=== PATIENT | female | born 1960 | race Caucasian/White ===

== ENCOUNTER 2019-05-29 18:19 | Emergency (ER) | payer BC ==
[2019-05-29 19:27] LABS: Urine Blood NEGATIVE (NEG); Urine Glucose NEGATIVE (NEG); Urine Protein NEGATIVE (NEG); Urine Specific Gravity 1.015 (1.005-1.030); Urine pH 5.5 (5.0-7.0)
[2019-05-29 19:33] LABS: Absolute Lymphocytes (CBC) 2.4 K/uL (0.7-4.9); Basophils % 0.6 % (0-1.3); Hematocrit 41.3 % (36.0-45.0); Lymphocytes % 26.5 % (15.3-44.8); MPV 10.3 fL (7.6-11.3); RBC Red Blood Cell Count 4.51 M/uL (3.86-4.86)
[2019-05-29] MEDS ORDERED: IBUPROFEN 200 MG TAB PO ONE (19:33)
[2019-05-29] MEDS ORDERED: IBUPROFEN 400 MG TAB ONE (19:33)
--- NOTE | 2019-05-29 20:06 | RAD REPORT ---
EXAM DESCRIPTION: Franki Single View05/29/2019 7:32 pm CLINICAL HISTORY: Chest pain COMPARISON: 2016 FINDINGS: The lungs appear clear of acute infiltrate. The heart is borderline enlarged IMPRESSION: No acute abnormalities displayed
[2019-05-29 20:15] LABS: ALT/SGPT 19 U/L (12-78); AST/SGOT 13 U/L (15-37); Albumin 3.6 g/dL (3.4-5.0); Alkaline Phosphatase 62 U/L (45-117); BUN Blood Urea Nitrogen 16 mg/dL (7-18); Bicarbonate 28 mmol/L (21-32); Bilirubin Direct 0.1 mg/dL (0-0.2); Bilirubin Total 0.3 mg/dL (0.2-1.0); Glucose Level 74 mg/dL (74-106); Lipase 83 U/L (73-393); NT PRO-BNP 170 pg/mL (<125); Protein, Total 7.3 g/dL (6.4-8.2); Sodium Level 141 mmol/L (136-145); Troponin (Emerg Dept Use Only) < 0.02 ng/mL (0.0-0.045)
--- NOTE | 2019-05-30 01:11 | ER ---
Nurse's Notes [facility] Name: Michelle Cosby Age: 58 yrs Sex: Female : 1960 Arrival Date: 05/29/2019 Time: 18:22 Bed 28 Private MD: Diagnosis: Chest pain, unspecified Presentation: 05/29 18:22 Presenting complaint: Patient states: diffuse chest pain that radiates to the left sv shoulder started 4 days ago. c/o SOB, left hand tingling, indigestion. Transition of care: patient was not received from another setting of care. Onset of symptoms was May 25, 2019. 18:22 Method Of Arrival: Ambulatory sv 18:22 Acuity: APURVA 3 sv 18:26 Risk Assessment: Do you want to hurt yourself or someone else? Patient reports no sv desire to harm self or others. Initial Sepsis Screen: Does the patient meet any 2 criteria? No. Patient's initial sepsis screen is negative. Does the patient have a suspected source of infection? No. Patient's initial sepsis screen is negative. Care prior to arrival: None. Triage Assessment: 18:22 General: Appears in no apparent distress. uncomfortable, obese, well developed, sv Behavior is calm, cooperative, appropriate for age. Pain: Complains of pain in chest Pain radiates to anterior aspect of left shoulder Pain currently is 2 out of 10 on a pain scale. Pain began 4 days ago Is intermittent. Neuro: Level of Consciousness is awake, alert, obeys commands, Oriented to person, place, time, situation. Respiratory: Respiratory effort is even, unlabored, Respiratory pattern is regular, symmetrical. Historical: - Allergies: 18:22 [place]; sv - PMHx: 18:25 Pernicious anemia; sv - PSHx: 18:22 eye surgery; ; sv - Immunization history:: Adult Immunizations up to date. - Social history:: Smoking status: Patient/guardian denies using tobacco. - Ebola Screening: : Patient negative for fever greater than or equal to 101.5 degrees Fahrenheit, and additional compatible Ebola Virus Disease symptoms Patient denies exposure to infectious person. - Family history:: pertinent for DVT. - Hospitalizations: : No recent hospitalization is reported. Screenin:38 Abuse screen: Denies threats or abuse. Denies injuries from another. Nutritional wh screening: No deficits noted. Tuberculosis screening: No symptoms or risk factors identified. Fall Risk None identified. Assessment: 19:35 General: Appears in no apparent distress. comfortable, Behavior is calm, cooperative, jd3 appropriate for age. Pain: Complains of pain in left scapular area and chest Quality of pain is described as radiating, sharp. Neuro: Level of Consciousness is awake, alert, obeys commands, Oriented to person, place, time, situation. Cardiovascular: Heart tones S1 S2 present Capillary refill < 3 seconds Patient's skin is warm and dry. Rhythm is regular. Respiratory: Airway is patent Respiratory effort is even, unlabored, Respiratory pattern is regular, symmetrical, Breath sounds are clear bilaterally. Denies cough, shortness of breath. GI: No signs and/or symptoms were reported involving the gastrointestinal system. Abdomen is round non-distended, Patient currently denies diarrhea, nausea, vomiting. : No signs and/or symptoms were reported regarding the genitourinary system. EENT: No signs and/or symptoms were reported regarding the EENT system. Derm: Skin is intact, Skin is dry, Skin is normal, Skin temperature is warm. Musculoskeletal: Circulation, motion, and sensation intact. Range of motion: intact in all extremities. 20:50 Reassessment: Patient appears in no apparent distress at this time. Patient and/or jd3 family updated on plan of care and expected duration. Pain level reassessed. Patient is alert, oriented x 3, equal unlabored respirations, skin warm/dry/pink. Patient states feeling better. 21:30 Reassessment: Patient appears in no apparent distress at this time. No changes from jd3 previously documented assessment. Patient and/or family updated on plan of care and expected duration. Pain level reassessed. Patient is alert, oriented x 3, equal unlabored respirations, skin warm/dry/pink. 22:11 Reassessment: Patient appears in no apparent distress at this time. No changes from jd3 previously documented assessment. Patient and/or family updated on plan of care and expected duration. Pain level reassessed. Patient is alert, oriented x 3, equal unlabored respirations, skin warm/dry/pink. 23:30 Reassessment: Patient appears in no apparent distress at this time. Patient and/or jd3 family updated on plan of care and expected duration. Pain level reassessed. Patient is alert, oriented x 3, equal unlabored respirations, skin warm/dry/pink. awaiting results of second troponin for discharge. 05/30 00:30 Reassessment: Patient appears in no apparent distress at this time. No changes from jd3 previously documented assessment. Patient and/or family updated on plan of care and expected duration. Pain level reassessed. Patient is alert, oriented x 3, equal unlabored respirations, skin warm/dry/pink. 01:20 Reassessment: Patient appears in no apparent distress at this time. Patient and/or jd3 family updated on plan of care and expected duration. Pain level reassessed. Patient is alert, oriented x 3, equal unlabored respirations, skin warm/dry/pink. reported understanding of discharge instructions. even and steady gait upon discharge. Patient denies pain at this time. Patient states feeling better. Vital Signs: 05/29 18:24 BP 154 / 75; Pulse 69; Resp 20; Temp 98; Pulse Ox 96% ; Weight 105.23 kg; Height 5 ft. sv 2 in. (157.48 cm); Pain 2/10; 20:49 Pulse 68; Resp 18 S; Pulse Ox 95% on R/A; Pain 0/10; jd3 22:10 Pulse 62; Resp 17 S; Pulse Ox 18% on R/A; jd3 23:54 BP 125 / 61; Pulse 68; Resp 18; Pulse Ox 95% on R/A; mt 05/30 01:17 BP 140 / 64; Pulse 69; Resp 16 S; Pulse Ox 95% on R/A; Pain 0/10; jd3 05/29 18:24 Body Mass Index 42.43 (105.23 kg, 157.48 cm) sv ED Course: 05/29 18:22 Patient arrived in ED. sv 18:24 Triage completed. sv 18:26 Arm band placed on. sv 18:36 Blake Garcia is Primary Nurse. wh 18:43 Patient has correct armband on for positive identification. Placed in gown. Bed in low wh position. Call light in reach. Side rails up X 1. threat monitoring analyst on. Pulse ox on. NIBP on. 18:43 Patient maintains SpO2 saturation greater than 95% on room air. wh 18:56 Jules Perera MD is Attending Physician. rn 19:16 Urine collected: clean catch specimen, clear. ky 19:30 Inserted saline lock: 20 gauge in left antecubital area, using aseptic technique. Blood mt collected. 19:33 XRAY Chest (1 view) In Process Unspecified. EDMS 05/30 00:42 Johny Winston MD is Referral Physician. rn 01:18 No provider procedures requiring assistance completed. IV discontinued, intact, jd3 bleeding controlled, No redness/swelling at site. Pressure dressing applied. Administered Medications: 05/29 19:35 Drug: Ibuprofen 600 mg Route: PO; jd3 20:35 Follow up: Response: No adverse reaction jd3 Outcome: 05/30 00:42 Discharge ordered by MD. rn 01:18 Discharged to home ambulatory, with family. jd3 01:18 Condition: stable 01:18 Discharge instructions given to patient, Instructed on discharge instructions, follow up and referral plans. Demonstrated understanding of instructions, follow-up care. 01:21 Patient left the ED. jd3 Signatures: Dispatcher [employer] EDNM Leatha Love RN RN sv Nieto, Roman, MD MD rn Thompson, [facility] Blake Garcia Valeriano Willard RN RN jd3 Corrections: (The following items were deleted from the chart) 05/29 18:25 18:24 Temp 98F; sv sv 18:26 18:22 Presenting complaint: Patient states: diffuse chest pain that radiates to the sv left shoulder started 4 days ago. c/o SOB, left hand tingling sv 18:26 18:24 Pulse 69bpm; Resp 20bpm; Pulse Ox 96%; Temp 98F; 105.23 kg; Height 5 ft. 2 in.; sv BMI: 42.4; Pain 2/10; sv 22:59 20:50 Reassessment: Patient appears in no apparent distress at this time. Patient jd3 and/or family updated on plan of care and expected duration. Pain level reassessed. Patient is alert, oriented x 3, equal unlabored respirations, skin warm/dry/pink. Patient states feeling better. jd3 22:59 21:30 Reassessment: Patient appears in no apparent distress at this time. Patient jd3 and/or family updated on plan of care and expected duration. Pain level reassessed. Patient is alert, oriented x 3, equal unlabored respirations, skin warm/dry/pink. jd3 22:59 22:11 Reassessment: Patient appears in no apparent distress at this time. Patient jd3 and/or family updated on plan of care and expected duration. Pain level reassessed. Patient is alert, oriented x 3, equal unlabored respirations, skin warm/dry/pink. jd3
--- NOTE | 2019-05-30 01:16 | EDPHYS ---
Physician Documentation [facility] Name: Michelle Cosby Age: 58 yrs Sex: Female : 1960 Arrival Date: 05/29/2019 Time: 18:22 Bed 28 Private MD: ED Physician Jules Perera HPI: 05/29 19:28 This 58 yrs old Female presents to ER via Ambulatory with complaints of Chest rn Pain. 19:28 The patient or guardian reports chest pain that is located primarily in the anterior rn chest wall. Onset: 4 day(s) ago. The pain radiates to the left shoulder. Associated signs and symptoms: Pertinent positives: None. Pertinent negatives: abdominal pain, cough, diaphoresis, lower extremity pain, lower extremity swelling, near syncope, palpitations, recent travel, shortness of breath, syncope, vomiting. The chest pain is described as aching, dull. Duration: The patient or guardian reports multiple episodes, that are intermittent, the episodes last approximately 10 minute(s). Modifying factors: The symptoms are alleviated by nothing. the symptoms are aggravated by nothing. Severity of pain: At its worst the pain was mild in the emergency department the pain is unchanged. The patient has not experienced similar symptoms in the past. Reports intermittent chest pain, radiates to left shoulder, lasts approx 10 min, has never had cardiac problems in past but has had TIA, attributed to B12 deficiency. NO longer taking B12. NO fever/cough/sob. Not worse with exertion or climbing stairs. . Historical: - Allergies: 18:22 [place]; sv - PMHx: 18:25 Pernicious anemia; sv - PSHx: 18:22 eye surgery; ; sv - Immunization history:: Adult Immunizations up to date. - Social history:: Smoking status: Patient/guardian denies using tobacco. - Ebola Screening: : Patient negative for fever greater than or equal to 101.5 degrees Fahrenheit, and additional compatible Ebola Virus Disease symptoms Patient denies exposure to infectious person. - Family history:: pertinent for DVT. - Hospitalizations: : No recent hospitalization is reported. ROS: 19:30 Constitutional: Negative for fever, chills, and weight loss, Eyes: Negative for injury, rn pain, redness, and discharge, Neck: Negative for injury, pain, and swelling, Cardiovascular: Negative for palpitations, and edema, Respiratory: Negative for shortness of breath, cough, wheezing, and pleuritic chest pain, Abdomen/GI: Negative for abdominal pain, nausea, vomiting, diarrhea, and constipation, Back: Negative for injury and pain, MS/Extremity: Negative for injury and deformity, Skin: Negative for injury, rash, and discoloration, Neuro: Negative for headache, weakness, numbness, tingling, and seizure. Exam: 19:30 Constitutional: This is a well developed, well nourished patient who is awake, alert, rn and in no acute distress. Head/Face: Normocephalic, atraumatic. Eyes: Pupils equal round and reactive to light, extra-ocular motions intact. Lids and lashes normal. Conjunctiva and sclera are non-icteric and not injected. Cornea within normal limits. Periorbital areas with no swelling, redness, or edema. ENT: MMM Cardiovascular: Regular rate and rhythm. NO JVD. No pulse deficits. Respiratory: Lungs have equal breath sounds bilaterally, clear to auscultation. No increased work of breathing, no retractions or nasal flaring. Abdomen/GI: Soft, non-tender MS/ Extremity: Pulses equal, no cyanosis. Neurovascular intact. Full, normal range of motion. Equal circumference. Neuro: Awake and alert, GCS 15, oriented to person, place, time, and situation. Cranial nerves II-XII grossly intact. Motor strength 5/5 in all extremities. Sensory grossly intact. Cerebellar exam normal. 21:49 ECG was reviewed by the Attending Physician. rn Vital Signs: 18:24 BP 154 / 75; Pulse 69; Resp 20; Temp 98; Pulse Ox 96% ; Weight 105.23 kg; Height 5 ft. sv 2 in. (157.48 cm); Pain 2/10; 20:49 Pulse 68; Resp 18 S; Pulse Ox 95% on R/A; Pain 0/10; jd3 22:10 Pulse 62; Resp 17 S; Pulse Ox 18% on R/A; jd3 23:54 BP 125 / 61; Pulse 68; Resp 18; Pulse Ox 95% on R/A; mt 05/30 01:17 BP 140 / 64; Pulse 69; Resp 16 S; Pulse Ox 95% on R/A; Pain 0/10; jd3 05/29 18:24 Body Mass Index 42.43 (105.23 kg, 157.48 cm) sv MDM: 05/29 18:56 Patient medically screened. rn 21:22 ED course: no further episodes, will repeat trop and ecg, if no change, will dc home rn and f/u with Dr. Winston who she has seen before for outpt stress and echo. Return precautions given and understood.. 05/30 00:41 Differential diagnosis: acute pericarditis, anxiety, coronary artery disease chest wall rn pain, costochondritis, gastroesophageal reflux disease (GERD), pleurisy, stable angina. Data reviewed: vital signs, nurses notes, lab test result(s), EKG, radiologic studies, plain films, and as a result, I will discharge patient. Counseling: I had a detailed discussion with the patient and/or guardian regarding: the historical points, exam findings, and any diagnostic results supporting the discharge/admit diagnosis, lab results, radiology results, the need for outpatient follow up, to return to the emergency department if symptoms worsen or persist or if there are any questions or concerns that arise at home. Special discussion: Based on the patient's history, exam, and Dx evaluation, there is no indication for emergent intervention or inpatient Tx. It is understood by the patient/guardian that if the Sx's persist or worsen they need to return immediately for re-evaluation. I discussed with the patient/guardian in detail that at this point there is no indication for admission to the hospital. It is understood, however, that if the symptoms persist or worsen the patient needs to return immediately for re-evaluation. ED course: Repeat trop neg, ECG without ischemia, will dc home as planned for f/u with Dr. Winston.. 00:42 ED course: No further episodes while here in ER. Patient comfortable with plan for rn outpt w/u.. 05/29 19:16 Order name: Basic Metabolic Panel; Complete Time: 20:20 rn 05/29 19:16 Order name: CBC with Diff; Complete Time: 20:06 rn 05/29 19:16 Order name: LFT's; Complete Time: 20:20 rn 05/29 19:16 Order name: NT PRO-BNP; Complete Time: 20:20 rn 05/29 19:16 Order name: Troponin (emerg Dept Use Only); Complete Time: 20:20 rn 05/29 19:16 Order name: Lipase; Complete Time: 20:20 rn 05/29 19:16 Order name: XRAY Chest (1 view); Complete Time: 20:20 rn 05/29 19:16 Order name: B12; Complete Time: 20:20 rn 05/29 19:21 Order name: Urine Dipstick--Ancillary (enter results); Complete Time: 20:06 ar5 05/29 19:30 Order name: D-Dimer; Complete Time: 22:15 rn 05/29 23:34 Order name: Troponin (emerg Dept Use Only) jd3 05/29 23:48 Order name: Troponin (Emerg Dept Use Only); Complete Time: 00:41 EDMS 05/29 18:33 Order name: EKG; Complete Time: 18:34 sv 05/29 18:33 Order name: EKG - Nurse/Tech; Complete Time: 18:38 sv 05/29 19:16 Order name: Cardiac monitoring; Complete Time: 19:27 rn 05/29 19:16 Order name: IV Saline Lock; Complete Time: 19:28 rn 05/29 19:16 Order name: Labs collected and sent; Complete Time: 19:28 rn 05/29 19:16 Order name: O2 Per Protocol; Complete Time: 19:28 rn 05/29 19:16 Order name: O2 Sat Monitoring; Complete Time: 19:28 rn 05/29 23:34 Order name: EKG - Nurse/Tech; Complete Time: 23:59 rn 05/29 23:34 Order name: EKG; Complete Time: 23:35 rn 05/29 23:34 Order name: EKG - Nurse/Tech; Complete Time: 23:59 jd3 EC/30 21:49 Rate is 70 beats/min. Rhythm is regular. QRS [place] is Normal. DC interval is normal. QRS rn interval is normal. QT interval is normal. No Q waves. T waves are Inverted in leads III, V3, V4. No ST changes noted. Clinical impression: NSR w/ Non-specific ST/T Changes. Interpreted by me. Reviewed by me. Administered Medications: 19:35 Drug: Ibuprofen 600 mg Route: PO; jd3 20:35 Follow up: Response: No adverse reaction jd3 Disposition: 05/30/19 00:42 Discharged to Home. Impression: Chest pain, unspecified. - Condition is Stable. - Discharge Instructions: Nonspecific Chest Pain. - Medication Reconciliation Form, Thank You Letter, Antibiotic Education, Prescription Opioid Use form. - Follow up: Johny Winston MD; When: As needed; Reason: Recheck today's complaints, Re-evaluation by your physician. - Problem is new. - Symptoms have improved. Signatures: Dispatcher [employer] Leatha Noonan RN RN sv Nieto, Roman, MD MD rn [place], Winsy wh Davies, Jonathon, RN RN jd3 Corrections: (The following items were deleted from the chart) 05/30 01:21 00:42 05/30/2019 00:42 Discharged to Home. Impression: Chest pain, unspecified. jd3 Condition is Stable. Forms are Medication Reconciliation Form, Thank You Letter, Antibiotic Education, Prescription Opioid Use. Follow up: Johny Winston; When: As needed; Reason: Recheck today's complaints, Re-evaluation by your physician. Problem is new. Symptoms have improved. rn
[2019-05-30 01:50] VITALS: TEMP 98
[2019-05-30 01:53] VITALS: O2SAT 95
[2019-05-30 01:55] VITALS: BP 140/64
--- NOTE | 2019-05-31 08:09 | EKG ---
Test Date: 2019-05-29 Test Time: 23:37:36 Loader Technician: JANINA MEASUREMENT RESULTS: Intervals: Rate: 68 OH: 152 QRSD: 88 QT: 420 QTc: 446 [place]: P: 44 OH: 152 QRS: 3 T: -6 INTERPRETIVE STATEMENTS: Normal sinus rhythm Cannot rule out Anterior infarct, age undetermined Abnormal ECG Compared to ECG 05/28/2016 01:26:22 Sinus bradycardia no longer present Incomplete right bundle-branch block no longer present T-wave abnormality no longer present Possible ischemia no longer present Myocardial infarct finding still present Electronically Signed On 05-31-19 08:07:11 CDT by Johny Winston
--- NOTE | 2019-06-01 08:40 | EKG ---
Test Date: 2019-05-29 Test Time: 18:37:38 Manager Fitness: TM MEASUREMENT RESULTS: Intervals: Rate: 69 IN: 150 QRSD: 92 QT: 408 QTc: 437 [place]: P: 43 IN: 150 QRS: 11 T: 20 INTERPRETIVE STATEMENTS: Normal sinus rhythm Possible Left atrial enlargement RSR' or QR pattern in V1 suggests right ventricular conduction delay Nonspecific T wave abnormality Abnormal ECG Compared to ECG 05/28/2016 01:26:22 Sinus bradycardia no longer present Electronically Signed On 06-01-19 08:37:28 CDT by Johny Winston
== END 2019-05-30 01:21 | disposition home or self-care (01) ==
LOC: ER 18:19
DX: R07.9 Chest pain, unspecified (principal); Z88.6 Allergy status to analgesic agent
CPT/HCPCS: 36415; 71045; 80048; 80076; 81003; 82607; 83690; 83880; 84484; 85025; 85379; 93005; 99285

== ENCOUNTER 2022-05-23 02:16 | Emergency (ER) | payer BC ==
--- OUTSIDE RECORDS SUMMARY | 2022-05-23 02:19 | XMS REPORT | Continuity of Care Document ---
:1960 Author Organization [facility] t Address [address] [place] [address] [address]. [address] [place] [address] Care Team Providers Name Role Phone Evette Gonzalez Attending Clinician Unavailable Physician, No Primary or Family Admitting Clinician Unavaila ble Payers Payer Name Policy Type Policy Number Effective Date Expiration Date S ource Problems This patient has no known problems. Allergies, Adverse Reactions, Alerts This patient has no known allergies or adverse reactions. Medications This patient has no known medications. Procedures This patient has no known procedures. Encounters Start End Encounter Admission Attending Care Care Encounter Source Date/Time Date/Time Type Type Clinicians Facility Department ID 2020-09-01 2020-09-01 Outpatient KERVIN Lang JOSE [id number] 04-18 [facility] 12:00:00 12:00:00 Evette [id number] [facility]s [facility] Results This patient has no known results.
[2022-05-23 03:34] LABS: Urine Blood Negative (Negative); Urine Glucose Negative (Negative); Urine Protein Negative (Negative); Urine Specific Gravity >=1.030 (1.005-1.030)
[2022-05-23 03:51] LABS: Hematocrit 42.4 % (36.0-45.0); Lymphocytes % 26.1 % (15.3-44.8); MCV 90.8 fL (80-100); MPV 9.9 fL (7.6-11.3); RBC Red Blood Cell Count 4.67 M/uL (3.86-4.86)
[2022-05-23 04:05] LABS: Potassium 3.8 mmol/L (3.5-5.1)
[2022-05-23 04:06] LABS: Albumin 3.5 g/dL (3.4-5.0); Bilirubin Total 0.5 mg/dL (0.2-1.0); Protein, Total 7.3 g/dL (6.4-8.2)
[2022-05-23] MEDS ORDERED: DIAZEPAM 5 MG TABLET ONE (04:10)
[2022-05-23] MEDS ORDERED: MORPHINE 2 MG/ML SYR ONE (04:11)
[2022-05-23] MEDS ORDERED: ONDANSETRON 4 MG/2 ML VIAL ONE (04:12)
[2022-05-23] MEDS ORDERED: KETOROLAC 30 MG/ML INJ ONE (04:12)
[2022-05-23] MEDS ORDERED: dexAMETHasone 10 MG/ML VIAL ONE (04:12)
[2022-05-23] MEDS ORDERED: NA CHLORIDE 0.9% 1,000 ML ONE (04:13)
--- NOTE | 2022-05-23 04:43 | EDPHYS ---
Physician Documentation [facility] Name: Michelle Cosby Age: 61 yrs Sex: Female : 1960 Arrival Date: 05/23/2022 Time: 02:21 Bed 18 Private MD: ED Physician Sammy Alvarez HPI: 05/23 03:05 This 61 yrs old Female presents to ER via Ambulatory with complaints of Back catherine Pain. 03:05 The patient presents with pain that is acute, with no known mechanism of injury, and catherine decreased range of motion. The symptoms are located in the left trapezius, right trapezius, left scapular area, right scapular area and thoracic area. Onset: The symptoms/episode began/occurred yesterday. The pain does not radiate. Associated signs and symptoms: The patient has no apparent associated signs or symptoms. The problem was sustained from twisting, typing. Modifying factors: The patient symptoms are alleviated by remaining still, rest, the patient symptoms are aggravated by any movement, bending, lifting. Severity of symptoms: At their worst the symptoms were mild, moderate, in the emergency department the symptoms are unchanged. The patient has not experienced similar symptoms in the past. Historical: - Allergies: 02:38 Arthur; bb - Home Meds: 02:38 b12 [Active]; bb - PMHx: 02:38 Pernicious Anemia; bb - PSHx: 02:38 section; bb - Immunization history:: Pfizer x 3. - Social history:: Smoking status: Patient denies any tobacco usage or history of. - Family history:: not pertinent. ROS: 03:05 Constitutional: Negative for fever, chills, and weight loss, Eyes: Negative for injury, catherine pain, redness, and discharge, ENT: Negative for injury, pain, and discharge, Neck: Negative for injury, pain, and swelling, Cardiovascular: Negative for chest pain, palpitations, and edema, Respiratory: Negative for shortness of breath, cough, wheezing, and pleuritic chest pain, Abdomen/GI: Negative for abdominal pain, nausea, vomiting, diarrhea, and constipation, : Negative for injury, bleeding, discharge, and swelling, MS/Extremity: Negative for injury and deformity, Skin: Negative for injury, rash, and discoloration, Neuro: Negative for headache, weakness, numbness, tingling, and seizure, Psych: Negative for depression, anxiety, suicide ideation, homicidal ideation, and hallucinations, Allergy/Immunology: Negative for hives, rash, and allergies, Endocrine: Negative for neck swelling, polydipsia, polyuria, polyphagia, and marked weight changes, Hematologic/Lymphatic: Negative for swollen nodes, abnormal bleeding, and unusual bruising. 03:05 Back: Positive for decreased range of motion, pain at rest, pain with movement, of the left trapezius, right trapezius, left scapular area, right scapular area and thoracic area. Exam: 03:05 Constitutional: This is a well developed, well nourished patient who is awake, alert, catherine and in no acute distress. Head/Face: Normocephalic, atraumatic. Eyes: Pupils equal round and reactive to light, extra-ocular motions intact. Lids and lashes normal. Conjunctiva and sclera are non-icteric and not injected. Cornea within normal limits. Periorbital areas with no swelling, redness, or edema. ENT: Nares patent. No nasal discharge, no septal abnormalities noted. Tympanic membranes are normal and external auditory canals are clear. Oropharynx with no redness, swelling, or masses, exudates, or evidence of obstruction, uvula midline. Mucous membranes moist. Neck: Trachea midline, no thyromegaly or masses palpated, and no cervical lymphadenopathy. Supple, full range of motion without nuchal rigidity, or vertebral point tenderness. No Meningismus. Chest/axilla: Normal chest wall appearance and motion. Nontender with no deformity. No lesions are appreciated. Cardiovascular: Regular rate and rhythm with a normal S1 and S2. No gallops, murmurs, or rubs. Normal PMI, no JVD. No pulse deficits. Respiratory: Lungs have equal breath sounds bilaterally, clear to auscultation and percussion. No rales, rhonchi or wheezes noted. No increased work of breathing, no retractions or nasal flaring. Abdomen/GI: Soft, non-tender, with normal bowel sounds. No distension or tympany. No guarding or rebound. No evidence of tenderness throughout. Female : Normal external genitalia. Skin: Warm, dry with normal turgor. Normal color with no rashes, no lesions, and no evidence of cellulitis. MS/ Extremity: Pulses equal, no cyanosis. Neurovascular intact. Full, normal range of motion. Neuro: Awake and alert, GCS 15, oriented to person, place, time, and situation. Cranial nerves II-XII grossly intact. Motor strength 5/5 in all extremities. Sensory grossly intact. Cerebellar exam normal. Normal gait. Psych: Awake, alert, with orientation to person, place and time. Behavior, mood, and affect are within normal limits. 03:05 Back: pain, that is very mild, that is mild, ROM is painful, with all movement, normal spinal alignment noted, CVA tenderness, is absent, vertebral tenderness, is not appreciated, muscle spasm, is appreciated in the left trapezius, right trapezius, left scapular area, right scapular area and thoracic area. 04:06 ECG was reviewed by the Attending Physician. [facility] Vital Signs: 02:32 BP 137 / 75; Pulse 70; Resp 16 S; Temp 97.6(O); Pulse Ox 96% on R/A; Weight 102.06 kg bb (R); Height 5 ft. 2 in. (157.48 cm) (R); Pain 9/10; 04:20 BP 151 / 71; Pulse 68; Resp 17 S; Pulse Ox 100% on R/A; Pain 8/10; ha1 04:40 BP 130 / 63; Pulse 64; Resp 17 S; Pulse Ox 100% on R/A; Pain 1/10; ha1 05:03 BP 122 / 61 RA; Pulse 64; ha1 05:05 BP 132 / 63 LA; Pulse 64; Resp 16; Pulse Ox 99% on R/A; ha1 02:32 Body Mass Index 41.15 (102.06 kg, 157.48 cm) MDM: 02:25 Patient medically screened. [facility] 03:07 Differential diagnosis: chronic back pain, Fatigue Joint Injury Ligament Injury Obesity catherine Osteoarthritis Osteoporosis Pyelonephritis ruptured disc, sprain, vertebral fracture. Data reviewed: vital signs, nurses notes, lab test result(s), EKG, radiologic studies, CT scan. 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 Test interpretation: by ED physician or midlevel provider: ECG, plain radiologic studies. Test interpretation: by ED physician or midlevel provider: plain radiologic studies, ct c/t spine. Counseling: I had a detailed discussion with the patient and/or guardian regarding: the historical points, exam findings, and any diagnostic results supporting the discharge/admit diagnosis, lab results, radiology results, the need for outpatient follow up, for definitive care, a family practitioner. 05/23 02:43 Order name: CBC with Diff; Complete Time: 04:07 [facility] 05/23 02:43 Order name: Comprehensive Metabolic Panel; Complete Time: 04:07 [facility] 05/23 02:43 Order name: CT C Spine [facility] 05/23 02:44 Order name: Troponin High Sensitivity; Complete Time: 04:40 [facility] 05/23 03:05 Order name: Urine Culture [facility] 05/23 03:35 Order name: Urine Dipstick-Ancillary; Complete Time: 04:07 [facility] 05/23 03:00 Order name: Thoracic Spine Wo Cont [facility] 05/23 02:43 Order name: EKG; Complete Time: 02:46 [facility] 05/23 02:43 Order name: EKG - Nurse/Tech; Complete Time: 05:37 [facility] 05/23 03:05 Order name: Urine Dipstick-Ancillary (obtain specimen); Complete Time: 03:34 [facility] 05/23 04:57 Order name: Bilateral blood pressure; Complete Time: 05:08 [facility] EC:06 Rate is 65 beats/min. Rhythm is regular. QRS Hilbert is Normal. MT interval is normal. QRS catherine interval is normal. QT interval is prolonged at 65 msec. No Q waves. T waves are Normal. No ST changes noted. Clinical impression: Abnormal EKG without significant change and No evidence of ischemia. Interpreted by me. Reviewed by me. Administered Medications: 04:23 Drug: Decadron - Dexamethasone 10 mg Route: IVP; Site: left antecubital; ha1 04:50 Follow up: Response: No adverse reaction 1 04:24 Drug: morphine 2 mg {Note: pain 8/10 RR 17.} Route: IVP; Infused Over: 4 mins; Site: ha1 left antecubital; 04:50 Follow up: Response: No adverse reaction; Pain is decreased; RASS: Alert and Calm (0) 1 04:25 Drug: NS 0.9% 1000 ml Route: IV; Rate: 1 bolus; Site: left antecubital; ha1 05:36 Follow up: Response: No adverse reaction; IV Status: Completed infusion; IV Intake: ha1 1000ml 04:25 Drug: Zofran (Ondansetron) 4 mg Route: IVP; Site: left antecubital; ha1 04:50 Follow up: Response: No adverse reaction ha1 04:26 Drug: Ketorolac 30 mg Route: IVP; Site: left antecubital; ha1 04:50 Follow up: Response: No adverse reaction; Pain is decreased ha1 04:26 Drug: Valium (diazepam) 5 mg Route: PO; ha1 04:50 Follow up: Response: No adverse reaction; RASS: Alert and Calm (0) ha1 05:16 Not Given (intervention not needed): morphine 2 mg IVP once over 4 mins ha1 Disposition Summary: 05/23/22 04:42 Discharge Ordered Location: Home catherine Problem: new catherine Symptoms: have improved catherine Condition: Stable catherine Diagnosis - Strain of muscle and tendon of back wall of thorax catherine - Strain of muscle and tendon of thorax catherine - Strain of muscle, fascia and tendon at neck level catherine Followup: catherine - With: Private Physician - When: 2 - 3 days - Reason: Recheck today's complaints, Continuance of care, Re-evaluation by your physician Discharge Instructions: - Discharge Summary Sheet catherine - Musculoskeletal Pain catherine Forms: - Medication Reconciliation Form catherine - Thank You Letter catherine - Antibiotic Education catherien - Prescription Opioid Use catherine Prescriptions: - Diclofenac Sodium 75 mg Oral tablet,delayed release (DR/EC) - take 1 tablet by ORAL route 2 times per day; 20 tablet; Refills: 0, Product catherine Selection Permitted - Tramadol 50 mg Oral Tablet - take 2 tablet by ORAL route every 8 hours as needed; 20 tablet; Refills: 0, [facility] Product Selection Permitted - Medrol (Indra) 4 mg Oral Tablets, Dose Pack - take 1 tablet by ORAL route as directed - follow package instructions; 1 catherine packet; Refills: 0, Product Selection Permitted - Cyclobenzaprine 5 mg Oral Tablet - take 1 tablet by ORAL route 3 times per day As needed; 15 tablet; Refills: 0, catherine Product Selection Permitted Signatures: Dispatcher [employer] Sammy Alba MD MD cha Ballard, Brenda, RN RN Chary Sotomayor RN RN ha1
--- NOTE | 2022-05-23 04:43 | ER ---
Nurse's Notes [facility] Name: Michelle Cosby Age: 61 yrs Sex: Female : 1960 Arrival Date: 05/23/2022 Time: 02:21 Bed 18 Private MD: Diagnosis: Strain of muscle and tendon of back wall of thorax;Strain of muscle and tendon of thorax;Strain of muscle, fascia and tendon at neck level Presentation: 05/23 02:32 Chief complaint: Patient states: she started having shoulder pain across the top of her bb shoulders since about 1600 yesterday after sitting at the computer all day pt thinks it may be related to her kidneys but denies burning with urination, frequency or urgency. Coronavirus screen: At this time, the client does not indicate any symptoms associated with coronavirus-19. Ebola Screen: No symptoms or risks identified at this time. Initial Sepsis Screen: Does the patient meet any 2 criteria? No. Patient's initial sepsis screen is negative. Does the patient have a suspected source of infection? No. Patient's initial sepsis screen is negative. Risk Assessment: Do you want to hurt yourself or someone else? Patient reports no desire to harm self or others. Onset of symptoms was May 22, 2022. 02:32 Method Of Arrival: Ambulatory 02:32 Acuity: APURVA 4 bb Historical: - Allergies: 02:38 [place]; bb - Home Meds: 02:38 b12 [Active]; bb - PMHx: 02:38 Pernicious Anemia; bb - PSHx: 02:38 section; bb - Immunization history:: Pfizer x 3. - Social history:: Smoking status: Patient denies any tobacco usage or history of. - Family history:: not pertinent. Screenin:36 Abuse screen: Denies threats or abuse. Denies injuries from another. Nutritional kd3 screening: No deficits noted. Tuberculosis screening: No symptoms or risk factors identified. Fall Risk IV access (20 points). Assessment: 03:36 General: Appears uncomfortable, Behavior is calm, cooperative. Neuro: Level of kd3 Consciousness is awake, alert, obeys commands, Oriented to person, place, time, situation. Respiratory: Airway is patent Trachea midline Respiratory effort is even, unlabored, Respiratory pattern is regular, symmetrical. 04:18 Reassessment: Patient and/or family updated on plan of care and expected duration. Pain ha1 level reassessed. Patient is alert, oriented x 3, equal unlabored respirations, skin warm/dry/pink. pain 8/10. notified in shift. 04:18 Pain: Complains of pain in back Quality of pain is described as crampy, pressure, ha1 tender, Alleviated by medications, Noted to be resistant to movement. 04:40 Reassessment: Patient and/or family updated on plan of care and expected duration. Pain ha1 level reassessed. Patient is alert, oriented x 3, equal unlabored respirations, skin warm/dry/pink. pain 1/10 Patient states feeling better. 05:30 Reassessment: Patient and/or family updated on plan of care and expected duration. Pain ha1 level reassessed. Patient is alert, oriented x 3, equal unlabored respirations, skin warm/dry/pink. discharged Patient states feeling better. Patient states symptoms have improved. pain 1/. Vital Signs: 02:32 BP 137 / 75; Pulse 70; Resp 16 S; Temp 97.6(O); Pulse Ox 96% on R/A; Weight 102.06 kg bb (R); Height 5 ft. 2 in. (157.48 cm) (R); Pain 9/10; 04:20 BP 151 / 71; Pulse 68; Resp 17 S; Pulse Ox 100% on R/A; Pain 8/10; ha1 04:40 BP 130 / 63; Pulse 64; Resp 17 S; Pulse Ox 100% on R/A; Pain 1/10; ha1 05:03 BP 122 / 61 RA; Pulse 64; ha1 05:05 BP 132 / 63 LA; Pulse 64; Resp 16; Pulse Ox 99% on R/A; ha1 02:32 Body Mass Index 41.15 (102.06 kg, 157.48 cm) ED Course: 02:21 Patient arrived in ED. bp1 02:24 Bed in low position. Call light in reach. Side rails up X 1. Client placed on ha1 continuous cardiac and pulse oximetry monitoring. NIBP monitoring applied. 02:25 Sammy Alvarez MD is Attending Physician. catherine 02:38 Triage completed. bb 02:38 Arm band placed on Patient placed in an exam room, on a stretcher, on pulse oximetry. bb 03:12 CT C Spine In Process Unspecified. EDMS 03:13 Thoracic Spine Wo Cont In Process Unspecified. EDMS 03:34 Urine Culture Sent. kd3 03:34 Troponin High Sensitivity Sent. kd3 03:35 Comprehensive Metabolic Panel Sent. kd3 03:35 CBC with Diff Sent. kd3 03:35 Inserted saline lock: 20 gauge in left antecubital area, using aseptic technique. Blood kd3 collected. 05:31 Chary Vergara, RN is Primary Nurse. ha1 05:35 No provider procedures requiring assistance completed. ha1 05:35 IV discontinued, intact, bleeding controlled, No redness/swelling at site. Pressure ha1 dressing applied. Administered Medications: 04:23 Drug: Decadron - Dexamethasone 10 mg Route: IVP; Site: left antecubital; ha1 04:50 Follow up: Response: No adverse reaction ha1 04:24 Drug: morphine 2 mg {Note: pain 8/10 RR 17.} Route: IVP; Infused Over: 4 mins; Site: ha1 left antecubital; 04:50 Follow up: Response: No adverse reaction; Pain is decreased; RASS: Alert and Calm (0) ha1 04:25 Drug: NS 0.9% 1000 ml Route: IV; Rate: 1 bolus; Site: left antecubital; ha1 05:36 Follow up: Response: No adverse reaction; IV Status: Completed infusion; IV Intake: ha1 1000ml 04:25 Drug: Zofran (Ondansetron) 4 mg Route: IVP; Site: left antecubital; ha1 04:50 Follow up: Response: No adverse reaction ha1 04:26 Drug: Ketorolac 30 mg Route: IVP; Site: left antecubital; ha1 04:50 Follow up: Response: No adverse reaction; Pain is decreased ha1 04:26 Drug: Valium (diazepam) 5 mg Route: PO; ha1 04:50 Follow up: Response: No adverse reaction; RASS: Alert and Calm (0) ha1 05:16 Not Given (intervention not needed): morphine 2 mg IVP once over 4 mins ha1 Medication: 05:35 VIS not applicable for this client. ha1 Intake: 05:36 IV: 1000ml; Total: 1000ml. ha1 Outcome: 04:42 Discharge ordered by . catherine 05:32 Patient left the ED. ha1 05:35 Condition: good ha1 05:35 Discharged to home ambulatory. ha1 05:35 Discharge instructions given to patient, Instructed on discharge instructions, follow up and referral plans. medication usage, Demonstrated understanding of instructions, follow-up care, medications, Prescriptions given X 4. Signatures: Dispatcher [employer] EDSammy Calderon MD MD cha Ballard, Brenda, RN RN Mery Lizarraga Kyli, RN RN 3 Chary Vergara RN RN ha1 Corrections: (The following items were deleted from the chart) 05:43 05:05 BP 132 / 63 L Arm; Pulse 64bpm; ha1 ha1 05:51 04:18 Reassessment: Patient and/or family updated on plan of care and expected ha1 duration. Pain level reassessed. Patient is alert, oriented x 3, equal unlabored respirations, skin warm/dry/pink. pain 8/10. notified in shift. ha1
[2022-05-23 06:04] VITALS: TEMP 97.6
[2022-05-23 06:06] VITALS: O2SAT 100
[2022-05-23 06:10] VITALS: BP 132/63
--- NOTE | 2022-05-23 06:24 | EKG ---
Test Date: 2022-05-23 Test Time: 03:54:47 Contract Technician: KERVIN MEASUREMENT RESULTS: Intervals: Rate: 57 VT: 146 QRSD: 90 QT: 448 QTc: 436 [place]: P: 58 VT: 146 QRS: 29 T: 44 INTERPRETIVE STATEMENTS: Sinus bradycardia Otherwise normal ECG Compared to ECG 05/29/2019 23:37:36 Sinus rhythm no longer present Myocardial infarct finding no longer present Electronically Signed On 05-23-22 06:23:38 CDT by Johny Winston
--- NOTE | 2022-05-23 12:32 | RAD REPORT ---
EXAM DESCRIPTION: CT - C Spine Wo Con - 05/23/2022 6:54 am CLINICAL HISTORY: The patient is 61 years old and is Female; Neck pain, acute, no red flags TECHNIQUE: Axial computed tomography images of the cervical spine without intravenous contrast. Sa gittal and coronal reformatted images were created and reviewed. This CT exam was performed using o ne or more of the following dose reduction techniques: automated exposure control, adjustment of th e mA and/or kV according to patient size, and/or use of iterative reconstruction technique. COMPARISON: No relevant prior studies available. FINDINGS: VERTEBRAE: The vertebral body heights and alignment are maintained. No acute fracture. DISCS/SPINAL CANAL/NEURAL FORAMINA: The intervertebral disc spaces are maintained. No spinal latrice l stenosis. SOFT TISSUES: The soft tissues are normal. IMPRESSION: No fracture or malalignment of the cervical spine. Electronically signed by: Laura Herman MD 05/23/2022 3:49 AM CDT Due to temporary technical issues with the PACS/Fluency reporting system, reports are being signed by the in house radiologists without review as a courtesy to insure prompt reporting. The interpreting radiologist is fully responsible for the content of the report.
--- NOTE | 2022-05-23 12:37 | RAD REPORT ---
EXAM DESCRIPTION: CT - Thoracic Spine Wo Cont - 05/23/2022 6:53 am CLINICAL HISTORY: The patient is 61 years old and is Female; Neck pain, acute, no red flags TECHNIQUE: Axial computed tomography images of the cervical spine without intravenous contrast. Sa gittal and coronal reformatted images were created and reviewed. This CT exam was performed using o ne or more of the following dose reduction techniques: automated exposure control, adjustment of th e mA and/or kV according to patient size, and/or use of iterative reconstruction technique. COMPARISON: No relevant prior studies available. FINDINGS: VERTEBRAE: The vertebral body heights and alignment are maintained. No acute fracture. DISCS/SPINAL CANAL/NEURAL FORAMINA: The intervertebral disc spaces are maintained. No spinal latrice l stenosis. SOFT TISSUES: The soft tissues are normal. IMPRESSION: No fracture or malalignment of the cervical spine. Electronically signed by: Laura Herman MD 05/23/2022 3:49 AM CDT Due to temporary technical issues with the PACS/Fluency reporting system, reports are being signed by the in house radiologists without review as a courtesy to insure prompt reporting. The interpreting radiologist is fully responsible for the content of the report.
--- NOTE | 2022-05-23 15:42 | EKG ---
Test Date: 2022-05-23 Test Time: 03:55:44 Line Operator: KERVIN MEASUREMENT RESULTS: Intervals: Rate: 65 FL: 148 QRSD: 90 QT: 448 QTc: 465 [place]: P: 58 FL: 148 QRS: 40 T: 23 INTERPRETIVE STATEMENTS: Normal sinus rhythm Nonspecific T wave abnormality Prolonged QT Abnormal ECG Compared to ECG 05/23/2022 03:54:47 T-wave abnormality now present Prolonged QT interval now present Sinus bradycardia no longer present Electronically Signed On 05-23-22 15:42:03 CDT by Nnamdi Davalos
== END 2022-05-23 05:32 | disposition home or self-care (01) ==
LOC: ER 02:16
DX: S29.012A Strain of muscle and tendon of back wall of thorax, initial encounter (principal); S16.1XXA Strain of muscle, fascia and tendon at neck level, initial encounter; Z88.5 Allergy status to narcotic agent
CPT/HCPCS: 93005 ×2; 87088; 85025; 87086; 36415; 81003; 84484; 80053; 72125; 72128; J1100; J2270; J7030; J2405